=== PATIENT | female | born 1990 | race African-American/Black ===

== ENCOUNTER 2021-11-01 15:49 | Day surgery (SDC) | payer OTHER ==
[2021-11-01 16:29] VITALS: BMI 36.7
[2021-11-01] MEDS ORDERED: hydrALAZINE 20 MG/ML VIAL SLOW IVP PRN (17:11)
[2021-11-01 17:17] LABS: Fetal Membranes Rupture No Membranes Rupture (No Rupture)
== END 2021-11-01 18:50 | disposition home or self-care (01) ==
LOC: CSHLD/OP 15:49
PROVIDERS: ATTEND Obstetrics & Gynecology
DX: O26.893 Other specified pregnancy related conditions, third trimester (principal); N89.8 Other specified noninflammatory disorders of vagina; Z3A.38 38 weeks gestation of pregnancy; Z79.899 Other long term (current) drug therapy; Z88.2 Allergy status to sulfonamides; Z87.891 Personal history of nicotine dependence
CPT/HCPCS: 76815; 84112; 87480; 87510; 87660; 99284

== ENCOUNTER 2021-11-08 17:36 | Inpatient (IN) | payer OTHER ==
[2021-11-08] MEDS ORDERED: hydrALAZINE 20 MG/ML VIAL SLOW IVP PRN ×2 (18:35→20:29)
[2021-11-08 18:42] VITALS: BMI 36.9
[2021-11-08] MEDS ORDERED: Lidocaine 1% (PF) 30 ML VIAL SC PRN (20:29)
[2021-11-08] MEDS ORDERED: Ondansetron PF 4 MG/2 ML Vial IVP PRN (20:29)
[2021-11-08] MEDS ORDERED: Promethazine HCl 25 MG/ML VIAL IM PRN (20:29)
[2021-11-08] MEDS ORDERED: NS w/ Oxytocin 30 units 500 ML IV SCH (20:30)
[2021-11-08 21:18] LABS: Hemoglobin 12.7 g/dL (12.0-15.5); Mean Corpuscular HGB CONC 33.5 g/dL (32.0-36.0); Mean Corpuscular Volume 89.4 fl (81.6-98.3); Mean Platelet Volume 11.6 fl (7.4-10.4); Platelet Count 216 10x3/uL (150-450); Red Blood Cell (RBC) Count 4.24 10x6/uL (3.90-5.03); White Blood Cell (WBC) Count 8.4 10x3/uL (3.5-10.5)
[2021-11-08 21:41] LABS: Fetal Membranes Rupture No Membranes Rupture (No Rupture)
[2021-11-08 21:54] LABS: Syphilis Antibody Nonreactive (Nonreactive); Syphilis Antibody Index 0.05 S/CO (<1.00 Non-Reactive)
[2021-11-08 22:15] LABS: SARS-CoV-2 NAA Rapid Test Not Detected (NotDetected)
[2021-11-08] MEDS ORDERED: Misoprostol 100 MCG TAB VAG SCH (22:15)
[2021-11-09 00:33] LABS: Hep B Surf Ag Non-Reactive S/CO (NonReactive)
[2021-11-09 00:43] LABS: HBSAg Index 0.22 S/CO (0-0.99)
[2021-11-09] MEDS: Misoprostol 100 MCG TAB VAG SCH ×4 (02:13→19:14)
[2021-11-09] MEDS ORDERED: Fentanyl 2 mcg/Bup 0.1% Cadd 100 ML ONE (07:25)
[2021-11-09] MEDS ORDERED: Fentanyl 100 MCG/2 ML VIAL EPIDURAL PRN (07:35)
[2021-11-09] MEDS ORDERED: Promethazine HCl 25 MG/ML VIAL IM PRN ×3 (07:35→18:11)
[2021-11-09] MEDS ORDERED: Moisturizing Cream (Eucerin) 113 GM JAR TOP PRN ×2 (07:35→18:11)
[2021-11-09] MEDS ORDERED: diphenhydrAMINE 50 MG/ML VIAL IVP PRN ×2 (07:35→18:11)
[2021-11-09] MEDS ORDERED: Ondansetron PF 4 MG/2 ML Vial IVP PRN ×3 (07:35→18:11)
[2021-11-09] MEDS ORDERED: Acetaminophen 325 MG TAB PO PRN ×2 (07:35→18:03)
[2021-11-09] MEDS ORDERED: ePHEDrine Sulfate 50 MG/10 ML VIAL SLOW IVP PRN (07:35)
[2021-11-09] MEDS ORDERED: Lactated Ringer's 500 ML IV PRN (07:35)
[2021-11-09] MEDS ORDERED: Naloxone HCl 0.4 mg/ml Vial IVP PRN ×4 (07:35→18:11)
[2021-11-09] MEDS ORDERED: Fentanyl 100 MCG/2 ML VIAL ONE ×2 (07:37→16:58)
[2021-11-09] MEDS ORDERED: Fentanyl 2 mcg/Bupivacaine 0.1% Cassette 100 ML EPIDURAL SCH (07:45)
[2021-11-09] MEDS ORDERED: Communication Order-Pharmacy FS SCH ×2 (07:45→18:15)
[2021-11-09] MEDS: Lactated Ringer's 1,000 ML IV SCH ×4 (08:22→21:00)
[2021-11-09] MEDS ORDERED: Bupivacaine 0.25% HCL 30 ML VIAL ONE (15:48)
[2021-11-09] MEDS ORDERED: Azithromycin 500 MG VIAL ONE (15:59)
[2021-11-09] MEDS ORDERED: CEFAZOLIN 2 GM VIAL ONE (15:59)
[2021-11-09] MEDS ORDERED: Bicitra 30 ML UDCUP PO PRN (16:11)
[2021-11-09] MEDS ORDERED: Famotidine/PF 20 mg/2ml Vial SLOW IVP PRN (16:11)
[2021-11-09] MEDS ORDERED: Azithromycin 500 MG in Sodium Chloride 0.9% 250 ML 250 ML IVPB SCH (16:15)
[2021-11-09] MEDS ORDERED: CEFAZOLIN 2 GM in Sodium Chloride 0.9% 100 ML IVPB SCH (16:15)
[2021-11-09] MEDS ORDERED: Carboprost 250 MCG/ML AMP ONE (16:17)
[2021-11-09] MEDS ORDERED: Methylergonovine 0.2 MG/ML VIAL ONE (16:17)
[2021-11-09] MEDS ORDERED: PHENYLEPHRINE-NS 100 MCG/ML 10 ML SYRINGE ONE (16:48)
[2021-11-09] MEDS ORDERED: Oxytocin 10 UNITS/ML VIAL ONE (16:48)
[2021-11-09] MEDS ORDERED: Phenylephrine 40 MG/NS 250 ML 250 ML ONE (16:49)
[2021-11-09] MEDS ORDERED: Ondansetron PF 4 MG/2 ML Vial ONE (16:49)
[2021-11-09] MEDS ORDERED: ePHEDrine Sulfate 50 MG/10 ML VIAL ONE (17:01)
[2021-11-09] MEDS ORDERED: Morphine PF 10 MG/10 ML VIAL ONE (17:02)
[2021-11-09] MEDS ORDERED: Ketorolac Tromethamine 30 MG/ML VIAL ONE (18:00)
[2021-11-09] MEDS ORDERED: Simethicone Chewable 80 MG TAB PO PRN (18:03)
[2021-11-09] MEDS ORDERED: Misoprostol 200 MCG TAB PR PRN (18:03)
[2021-11-09] MEDS ORDERED: hydrALAZINE 20 MG/ML VIAL SLOW IVP PRN (18:03)
[2021-11-09] MEDS ORDERED: Meperidine HCl/PF 25 MG/ML VIAL SLOW IVP PRN (18:11)
[2021-11-09] MEDS ORDERED: HYDROmorphone 2 MG/ML VIAL SLOW IVP PRN (18:11)
[2021-11-09] MEDS ORDERED: Ondansetron HCl/PF 4 MG/2 ML Vial IVP PRN (18:11)
[2021-11-09] MEDS ORDERED: Naloxone HCl 0.4 mg/ml Vial IV PRN (18:11)
[2021-11-09] MEDS ORDERED: Promethazine HCl 25 MG SUPP PR PRN (18:11)
[2021-11-09] MEDS ORDERED: Fentanyl 100 MCG/2 ML VIAL SLOW IVP PRN (18:11)
[2021-11-09] MEDS ORDERED: NS w/ Oxytocin 30 units 500 ML IV SCH (18:15)
[2021-11-09] MEDS ORDERED: Ferrous Sulfate 325 MG TAB PO SCH (21:00)
[2021-11-09] MEDS ORDERED: Ibuprofen 800 MG TAB PO SCH (22:00)
[2021-11-10] MEDS: Ketorolac Tromethamine 30 MG/ML VIAL IVP PRN ×2 (00:20→05:49)
[2021-11-10] MEDS: Docusate 100 MG CAP PO SCH ×3 (03:58→21:50)
[2021-11-10 04:28] LABS: Hemoglobin 11.5 g/dL (12.0-15.5); Mean Corpuscular HGB CONC 33.6 g/dL (32.0-36.0); Mean Corpuscular Hemoglobin 30.1 pg (27.0-33.0); Mean Corpuscular Volume 89.5 fl (81.6-98.3); Mean Platelet Volume 11.8 fl (7.4-10.4); Platelet Count 202 10x3/uL (150-450); Red Blood Cell (RBC) Count 3.82 10x6/uL (3.90-5.03); White Blood Cell (WBC) Count 13.7 10x3/uL (3.5-10.5)
[2021-11-10] MEDS ORDERED: Ferrous Sulfate 325 MG TAB PO SCH (07:00)
[2021-11-10] MEDS: Prenatal Vitamin 1 TAB PO SCH (07:48)
[2021-11-10] MEDS: Lactated Ringer's 1,000 ML IV SCH (07:51)
[2021-11-10] MEDS ORDERED: diphenhydrAMINE 25 MG CAP PO SCH (08:30)
[2021-11-10] MEDS ORDERED: Ketorolac Tromethamine 30 MG/ML VIAL IVP PRN (12:00)
[2021-11-10] MEDS: HYDROcodone/Acetaminophen 5/325 mg Tablet PO PRN (19:01)
[2021-11-10] MEDS: Ibuprofen 800 MG TAB PO SCH (21:45)
[2021-11-10] MEDS ORDERED: Ibuprofen 800 MG TAB PO SCH (22:00)
[2021-11-11] MEDS: HYDROcodone/Acetaminophen 5/325 mg Tablet PO PRN ×3 (03:15→14:04)
[2021-11-11] MEDS: Ibuprofen 800 MG TAB PO SCH ×2 (06:29→14:04)
[2021-11-11 08:25] LABS: Hemoglobin 10.5 g/dL (12.0-15.5)
[2021-11-11 08:29] VITALS: TEMP 97.7
[2021-11-11] MEDS: Prenatal Vitamin 1 TAB PO SCH (09:45)
[2021-11-11] MEDS: Docusate 100 MG CAP PO SCH (09:46)
[2021-11-11 11:50] VITALS: BP 118/76
[2021-11-12] MEDS ORDERED: Ibuprofen 800 MG TAB PO PRN (02:00)
== END 2021-11-11 14:00 | disposition home or self-care (01) | DRG 788 ==
LOC: CSHLD 17:36 → CSHPP 11-09 19:45
PROVIDERS: ADMIT Emergency Medicine; ATTEND Emergency Medicine
PROC: 10D00Z1 Extraction of Products of Conception, Low, Open Approach (ICD-10-PCS; principal; 2021-11-09)
PROC: 3E0P7VZ Introduction of Hormone into Female Reproductive, Via Natural or Artificial Opening (ICD-10-PCS; 2021-11-09)
DX: O41.03X0 Oligohydramnios, third trimester, not applicable or unspecified (principal); Z3A.39 39 weeks gestation of pregnancy; Z37.0 Single live birth; Z20.822 Contact with and (suspected) exposure to COVID-19; O76 Abnormality in fetal heart rate and rhythm complicating labor and delivery; O99.02 Anemia complicating childbirth; E66.9 Obesity, unspecified; O99.214 Obesity complicating childbirth; Z87.440 Personal history of urinary (tract) infections; F41.9 Anxiety disorder, unspecified; Z88.2 Allergy status to sulfonamides; Z91.030 Bee allergy status; O32.8XX0 Maternal care for other malpresentation of fetus, not applicable or unspecified; O42.92 Full-term premature rupture of membranes, unspecified as to length of time between rupture and onset of labor; D50.9 Iron deficiency anemia, unspecified; O32.4XX0 Maternal care for high head at term, not applicable or unspecified; O99.344 Other mental disorders complicating childbirth; F32.A Depression, unspecified
CPT/HCPCS: 36415; 51702; 76815; 84112; 85014; 85018; 85027; 86780; 86850; 86900; 86901; 87340; J0456; J0595; J0690; J1200; J1885; J2274; J2405; J2590; J3010; J7120; U0002